=== PATIENT | male | born 1940 | race Caucasian/White ===

== ENCOUNTER 2017-08-31 20:35 | Observation (INO) ==
[2017-08-31] MEDS ORDERED: Aspirin 325 MG Tablet PO ONE (21:58)
--- NOTE | 2017-08-31 21:58 | ED ---
HPI General Chief Complaint: Back Pain/Injury Stated Complaint: left arm pain/low blood pressure Time Seen by Provider: 08/31/17 21:34 Source: patient Mode of arrival: ambulatory Limitations: no limitations History of Present Illness HPI Narrative: 76-year-old male with PMH of HTN, HLD presents to the ED for evaluation of episodic left-sided subscapular back pain. Patient states the first episode was a few days ago. Onset while at rest. Lasting a few seconds and resolving spontaneously. Sharp in nature. He states that this afternoon around 530 he had an episode with associated tingling of the left arm and diaphoresis. This lasted a few minutes and resolved on its own. He took a Tylenol at that time. On presentation he is asymptomatic. He denies headache, dizziness, chest pain, palpitations, abdominal pain, nausea, vomiting, dysuria, weakness of the extremities. He denies any acute injury or recent overuse. 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 He endorses history of [place] in his brother in his early 70s. He has never had a cardiac evaluation. Related Data Home Medications Medication Instructions Recorded Confirmed amlodipine 10 mg PO DAILY 08/31/17 08/31/17 atorvastatin 80 mg PO DAILY 08/31/17 08/31/17 benazepril 20 mg PO DAILY 08/31/17 08/31/17 Allergies Allergy/AdvReac Type Severity Reaction Status Date / Time No Known Allergies Allergy Unverified 08/31/17 20:43 Review of Systems Except as stated in HPI: all other systems reviewed are negative PMFSH Medical History Medical History Hypercholesteremia (Acute) Surgical History Surgical History History of tonsillectomy (Acute) Social History Social History Smoking Status: Never smoker How Often Do You Have a Drink Containing Alcohol: Monthly or less Recent Travel [facility] within the Last 8 Weeks: No Recent Out of Country Travel within the Last 8 Weeks: No Exam Narrative Exam Narrative: GENERAL: Well-developed, well-nourished, pleasant white male in no acute distress. SKIN: Focused skin assessment warm/dry. HEAD: Atraumatic. Normocephalic. EYES: Pupils equal and round. No scleral icterus. No injection or drainage. ENT: No nasal bleeding or discharge. Mucous membranes pink and moist. NECK: Trachea midline. No JVD. CARDIOVASCULAR: Regular rate and rhythm. No murmur appreciated. No tenderness to palpation of the precordium. RESPIRATORY: No accessory muscle use. Clear to auscultation. Breath sounds equal bilaterally. GASTROINTESTINAL: Abdomen soft, non-tender, nondistended. Hepatic and splenic margins not palpable. MUSCULOSKELETAL: No obvious deformities. No clubbing. No cyanosis. No edema. NEUROLOGICAL: Awake and alert. No obvious cranial nerve deficits. Motor grossly within normal limits. Normal speech. BACK: No reproducible tenderness. No CVA tenderness. PSYCHIATRIC: Appropriate mood and affect; insight and judgment normal. Course Initial Documented Vital Signs Temperature 98 F 08/31/17 20:38 Pulse Rate 58 L 08/31/17 20:38 Respiratory Rate 20 08/31/17 20:38 Blood Pressure 171/82 H 08/31/17 20:38 Pulse Oximetry 99 08/31/17 20:38 Last Documented Vital Signs Temperature 98 F 08/31/17 20:38 Pulse Rate 58 L 08/31/17 22:26 Respiratory Rate 16 08/31/17 22:26 Blood Pressure 145/68 H 08/31/17 22:26 Pulse Oximetry 97 08/31/17 22:26 Sign Out Sign Out Data: Patient Sign Out occurred on 08/31/17 at 23:10. Patient's care was discussed, and care was transferred from DORIS Valerio to Eneida Cote DO. Sign Out Comment: 76-year-old male presents the ED for evaluation of intermittent back pain, last episode with associated tingling of the left arm and diaphoresis. Asymptomatic on presentation. EKG without acute changes. CXR with possible atelectasis in the left lower lobe area. Remaining lab work pending. Patient signed out to Dr. Tirado at end of shift. Last updated by Allyn Islas PA at 08/31/17 23:00 Medical Decision Making KOURTNEY Attestation KOURTNEY supervised visit: Yes Attestation: I was present with the advanced practitioner during the management of this patient. I discussed the case with the advanced practitioner and agree with the findings and plan as documented in their note except as noted below. 76yM presenting with left shoulder/ arm pain and diaphoresis. The patient states that he was at rest when he began to have "sharp" upper shoulder pain which radiates down his left arm, constant x several minutes, associated with copious diaphoresis and lightheadedness. Denies palpitations, dyspnea, or nausea. He has had several episodes of similar pain in the past but has not sought medical attention. Past history significant for HTN and HLD, family history of brother with "massive heart attack" in his 70s. Well-appearing, no acute distress NCAT, PERRL RRR, no murmurs Lungs CTAB Abdomen soft and non-tender No lower extremity edema No tenderness to upper back or scapula, normal ROM GCS 15, no neuro deficits A/P: 76yM presenting with left shoulder/ arm pain and diaphoresis EKG and monitor Labs CXR Patient has multiple risk factors for CAD (family history, HTN, HLD) with story concerning for anginal equivalent. He will need cardiac monitoring and serial enzyme measurements in chest pain unit. I explained this to the patient and his family member, who understand and agree. [facility] Narrative Medical decision making narrative: 76-year-old male with PMH of HLD, HTN since the ED for evaluation of intermittent subscapular left-sided back pain. Had an episode around 530 this afternoon with accompanying left arm tingling and diaphoresis. Vitals reviewed. No reproducible tenderness on physical exam. No appreciable M/R/G. Regular rate and rhythm. IV was established. Patient was administered 325 mg aspirin. EKG: Rate 58, sinus bradycardia with first-degree AV block. NV interval 231, QRS 96, QTc [address] changes. Reviewed by Dr. Tirado. CXR: Left lower lung airspace disease which may reflect atelectasis per radiology review. CBC, CMP, cardiac enzymes pending. Patient signed out to Dr. Tirado at end of shift. Differential Diagnosis Differential Diagnosis: Musculoskeletal pain versus angina versus ACS versus pancreatitis versus other Lab Data Result diagrams: 08/31/17 22:20 08/31/17 22:20 Lab Results 08/31/17 08/31/17 08/31/17 Range/Units 22:20 22:20 22:20 WBC 7.9 (4.0-11.0) th/mm3 RBC 4.11 L (4.50-5.90) mil/mm3 Hgb 12.5 L (13.0-17.0) gm/dL Hct 36.8 L (39.0-51.0) % MCV 89.7 (80.0-100.0) fL MCH 30.5 (27.0-34.0) pg MCHC 34.1 (32.0-36.0) % RDW 13.3 (11.6-17.2) % Plt Count 210 (150-450) th/mm3 MPV 8.4 (7.0-11.0) fL Neut % (Auto) 64.7 (16.0-70.0) % Lymph % (Auto) 17.6 (9.0-44.0) % [place] % (Auto) 7.8 (0.0-8.0) % Eos % (Auto) 9.1 H (0.0-4.0) % Baso % (Auto) 0.8 (0.0-2.0) % Neut # (Auto) 5.1 (1.8-7.7) th/mm3 Lymph # (Auto) 1.4 (1.0-4.8) th/mm3 [place] # (Auto) 0.6 (0.0-0.9) th/mm3 Eos # (Auto) 0.7 H (0.0-0.4) th/mm3 Baso # (Auto) 0.1 (0.0-0.2) th/mm3 WBC Differential . Differential Comment Auto diff final PT 9.8 (9.8-11.6) sec INR 1.0 Ratio APTT 24.2 L (24.3-30.1) sec Sodium 139 (136-145) meq/L Potassium 4.1 (3.5-5.1) meq/L Chloride 108 H (98-107) meq/L Carbon Dioxide 23.2 (21.0-32.0) meq/L Anion Gap 8 (5-15) meq/L BUN 23 H (7-18) mg/dL Creatinine 1.07 (0.60-1.30) mg/dL Estimated GFR 67 L (>89) mL/min Random Glucose 117 H (74-106) mg/dL Calcium 8.4 L (8.5-10.1) mg/dL Total Bilirubin 0.2 (0.2-1.0) mg/dL AST 18 (15-37) U/L ALT 26 (12-78) U/L Alkaline Phosphatase 75 (45-117) U/L Troponin I Less than 0.02 L (0.02-0.05) ng/mL Total Protein 6.7 (6.4-8.2) g/dL Albumin 3.6 (3.4-5.0) g/dL Lipase 249 (73-393) U/L Imaging Data Radiologist's impression: Chest X-Ray 08/31/17 21:58 CONCLUSION: 1. Mild left lower lung zone airspace disease which may reflect atelectasis. Discharge Plan Discharge Disposition Patient Disposition: 30 Still Patient Discharge Condition Condition: Stable Discharge Details Diagnosis: Chest pain, Arm pain, left Physicians Team ED Provider: Eneida Cote Primary Care Provider: Toro Hidalgo Rxs /Orders / Referrals /Forms Prescriptions: No Action atorvastatin 80 mg Tablet 80 mg PO DAILY RF: 0 amlodipine 10 mg Tablet 10 mg PO DAILY RF: 0 benazepril 20 mg Tablet 20 mg PO DAILY RF: 0 Status ED Status: With Doctor
[2017-08-31 22:44] LABS: Baso # (Auto) 0.1 th/mm3 (0.0-0.2); Baso % (Auto) 0.8 % (0.0-2.0); Eos # (Auto) 0.7 th/mm3 (0.0-0.4); Eos % (Auto) 9.1 % (0.0-4.0); Hematocrit 36.8 % (39.0-51.0); Hemoglobin 12.5 gm/dL (13.0-17.0); Lymph # (Auto) 1.4 th/mm3 (1.0-4.8); Lymph % (Auto) 17.6 % (9.0-44.0); Mean Corpuscular HGB Conc 34.1 % (32.0-36.0); Mean Corpuscular Hemoglobin 30.5 pg (27.0-34.0); Mean Corpuscular Volume 89.7 fL (80.0-100.0); Mean Platelet Volume 8.4 fL (7.0-11.0); Mono # (Auto) 0.6 th/mm3 (0.0-0.9); Mono % (Auto) 7.8 % (0.0-8.0); Neut # (Auto) 5.1 th/mm3 (1.8-7.7); Neut % (Auto) 64.7 % (16.0-70.0); Platelet Count 210 th/mm3 (150-450); Red Blood Count 4.11 mil/mm3 (4.50-5.90); Red Cell Distribution Width 13.3 % (11.6-17.2); White Blood Count 7.9 th/mm3 (4.0-11.0)
--- NOTE | 2017-08-31 22:49 | XR ---
EXAM DATE: 08/31/2017 10:45 PM EDT AGE/SEX: 76 years / Male INDICATIONS: Chest pain. CLINICAL DATA: This is the patient's initial encounter. Patient reports that signs and symptoms have been present for 1 day and indicates a pain score of 8/10. MEDICAL/SURGICAL HISTORY: None. None. COMPARISON: No prior exams available for comparison. FINDINGS: Mild airspace disease in the left lower lung zone. The cardiomediastinal contours are unremarkable. Osseous structures are intact. CONCLUSION: 1. Mild left lower lung zone airspace disease which may reflect atelectasis. Electronically signed by: Tr Mkai MD 08/31/2017 10:48 PM EDT
[2017-08-31 22:56] LABS: Activated Partial Thrombo Time 24.2 sec (24.3-30.1); Prothrombin Time 9.8 sec (9.8-11.6)
[2017-08-31 23:01] LABS: Albumin 3.6 g/dL (3.4-5.0); Anion Gap 8 meq/L (5-15); Aspartate Aminotransferase 18 U/L (15-37); Blood Urea Nitrogen 23 mg/dL (7-18); Calcium 8.4 mg/dL (8.5-10.1); Carbon Dioxide 23.2 meq/L (21.0-32.0); Chloride 108 meq/L (98-107); Glomerular Filtration Rate 67 mL/min (>89); Glucose,Random 117 mg/dL (74-106); Lipase 249 U/L (73-393); Potassium 4.1 meq/L (3.5-5.1); Sodium 139 meq/L (136-145)
[2017-08-31 23:02] LABS: Alanine Aminotransferase 26 U/L (12-78)
[2017-08-31 23:06] LABS: Alkaline Phosphatase 75 U/L (45-117); Total Protein 6.7 g/dL (6.4-8.2)
[2017-09-01] MEDS ORDERED: Acetaminophen 500 MG Tablet PO PRN (07:28)
--- NOTE | 2017-09-01 08:43 | P.HPCA ---
History of Present Illness Primary Care Physician: Toro Hidalgo MD Chief Complaint: chest pain History of Present Illness: 76 year old male with history of hyperlipidemia and hypertension presents emergency room for further evaluation left scapular and left arm pain. Onset of left scapula pain 3 days ago. Characterizes aching. Duration minutes. Made worse certain positions. No precipitating, relieving factors, associated symptoms. Yesterday afternoon while watching TV developed left elbow tightness and sharp pain. Duration 5-10 seconds. No associated symptoms of nausea, vomiting, dyspnea, or diaphoresis. discomfort returned x1 episode, again duration seconds. After second episode became diaphoretic after pain subsided. Left elbow pain did not occur with left scapular pain. No recent illness or injury. Denies similar pain in the past. No past cardiac testing. Family history noncontributory for early onset cardiovascular disease. No history of tobacco use. - Diagnosis (1) Chest pain, atypical (2) H/O: hypertension (3) H/O hyperlipidemia Review of Systems All other systems reviewed negative except as stated in [facility] - History History Provided By: Patient - Medical History Medical History: Medical History (Last Updated 09/01/17 @ 11:42 by NAILA Lagunas) Arthritis Cataract, left eye GERD (gastroesophageal reflux disease) Hypercholesteremia Hypertension - Surgical History Surgical History: Surgical History (Last Updated 09/01/17 @ 11:42 by NAILA Lagunas) H/O cataract removal with insertion of prosthetic lens History of tonsillectomy - Family History Family History: Family History (Last Updated 09/01/17 @ 11:43 by NAILA Lagunas) Brother Coronary artery disease - Tobacco History Second Hand Smoke Exposure: No Tobacco Use In Past 30 Days: No Smoking Status: Never smoker - Alcohol History How Often Do You Have a Drink Containing Alcohol: Monthly or less - Substance Use History Substance History: No History of Abuse - Travel History History of Recent Travel: No Recent Travel in the [place] Within the Last 8 Weeks: No Recent Travel Out of the Country Within the Last 8 Weeks: No - Immunization History Tetanus Immunization: <5 Years Tetanus Immunization Year if Known: 2016 Medications and Allergies Active Medications: Active Medications Acetaminophen (Tylenol) 500 mg PO Q4H PRN PRN Reason: HEADACHE Aspirin (Aspirin) 325 mg PO DAILY ROXANA Last Admin: 09/01/17 08:22 Dose: 325 mg Nitroglycerin (Nitrostat Sl) 0.4 mg SL Q5M PRN PRN Reason: CHEST PAIN Sodium Chloride (Ns Flush) 2 ml IV.FLUSH BID ROXANA Last Admin: 09/01/17 08:21 Dose: 2 ml Sodium Chloride (Ns Flush) 2 ml IV.FLUSH PRN PRN PRN Reason: FLUSH AFTER USING IV ACCESS Allergies Allergy/AdvReac Type Severity Reaction Status Date / Time No Known Allergies Allergy Unverified 08/31/17 20:43 Home Medications Medication Instructions Recorded Confirmed Type amlodipine 10 mg PO DAILY 08/31/17 08/31/17 History atorvastatin 80 mg PO DAILY 08/31/17 08/31/17 History benazepril 20 mg PO DAILY 08/31/17 08/31/17 History Exam Vital signs: Vital Signs 08/31/17 20:38 08/31/17 22:12 08/31/17 22:26 Temperature 98 F Pulse Rate 58 L 58 L Respiratory Rate 20 16 Blood Pressure 171/82 H 145/68 H Pulse Oximetry 99 97 97 09/01/17 00:00 09/01/17 00:51 09/01/17 04:00 Temperature 97.9 F 98.3 F Pulse Rate 50 L 52 L 52 L Respiratory Rate 16 16 17 Blood Pressure 102/57 L 113/58 L 116/62 Pulse Oximetry 95 98 96 09/01/17 08:00 Temperature 97.9 F Pulse Rate 63 Respiratory Rate 16 Blood Pressure 141/67 H Pulse Oximetry 96 Intake & Output 08/31/17 09/01/17 09/01/17 18:59 06:59 18:59 Weight 92.533 kg - Constitutional no acute distress, average body habitus, cooperative - Routine HEENT Exam Head: Present: normocephalic, atraumatic - Routine Neck Exam Present: supple, full ROM. Absent: JVD, carotid bruit - Routine Chest/Breast/Axilla Exam Chest wall: Absent: tenderness - Routine Respiratory Exam Present: CTA bilaterally. Absent: rhonchi, wheezes, crackles - Routine Cardiovascular Exam Present: RRR, murmur, bradycardia. Absent: gallop, rubs Comments: 2/6 systolic murmur heard best right sternal border - Routine Abdominal Exam Present: soft, normoactive bowel sounds. Absent: tenderness, distended, guarding, firm - Routine Extremities Exam Present: full ROM, pulses intact, normal capillary refill. Absent: edema - Routine Skin Exam Present: intact, warm, normal turgor - Routine Neurological Exam Present: alert, oriented X3, CN II-XII intact, moving all extremities, normal tone - Routine Psychiatric Exam Present: normal affect, normal thought process, cooperative, good insight, good judgment. Absent: anxious, agitated Results 08/31/17 22:20 08/31/17 22:20 Cardiac Enzymes 08/31/17 09/01/17 09/01/17 Range/Units 22:20 02:50 05:48 AST 18 (15-37) U/L Troponin I Less than 0.02 L Less than 0.02 L Less than 0.02 L (0.02-0.05) ng/mL Coagulation 08/31/17 Range/Units 22:20 PT 9.8 (9.8-11.6) sec APTT 24.2 L (24.3-30.1) sec CBC 08/31/17 Range/Units 22:20 WBC 7.9 (4.0-11.0) th/mm3 RBC 4.11 L (4.50-5.90) mil/mm3 Hgb 12.5 L (13.0-17.0) gm/dL Hct 36.8 L (39.0-51.0) % Plt Count 210 (150-450) th/mm3 Neut # (Auto) 5.1 (1.8-7.7) th/mm3 Lymph # (Auto) 1.4 (1.0-4.8) th/mm3 [place] # (Auto) 0.6 (0.0-0.9) th/mm3 Eos # (Auto) 0.7 H (0.0-0.4) th/mm3 Baso # (Auto) 0.1 (0.0-0.2) th/mm3 Comprehensive Metabolic Panel 08/31/17 Range/Units 22:20 Sodium 139 (136-145) meq/L Potassium 4.1 (3.5-5.1) meq/L Chloride 108 H (98-107) meq/L Carbon Dioxide 23.2 (21.0-32.0) meq/L BUN 23 H (7-18) mg/dL Creatinine 1.07 (0.60-1.30) mg/dL Calcium 8.4 L (8.5-10.1) mg/dL AST 18 (15-37) U/L ALT 26 (12-78) U/L Alkaline Phosphatase 75 (45-117) U/L Total Protein 6.7 (6.4-8.2) g/dL Albumin 3.6 (3.4-5.0) g/dL Intake and Output 08/31/17 09/01/17 09/01/17 22:59 06:59 14:59 Other: Weight 92.533 kg EKG interpretations - EKG EKG results cardiology: sinus rhythm, normal axis, normal QRS, normal ST/T (1st AVB, NSB, no st t segment changes, normal axis) EKG shows: bradycardia - Blocks, axis, hypertrophy, ST abn AV and intraventricular conduction: 1 AV block Caprini VTE Risk Assessment Caprini VTE Risk Assessment: Moderate/High Risk (score >= 2) Caprini Risk Assessment Model: Point Value = 1 Point Value = 2 Point Value = 3 Point Value = 5 Age 41-60 Minor surgery BMI > 25 kg/m2 Swollen legs Varicose veins or History of unexplained or recurrent spontaneous Oral contraceptives or hormone replacement Sepsis (< 1 month) Serious lung disease, including pneumonia (< 1 month) Abnormal pulmonary function Acute myocardial infarction Congestive heart failure (< 1 month) History of inflammatory bowel disease Medical patient at bed rest Age 61-74 Arthroscopic surgery Major open surgery (> 45 min) Laparoscopic surgery (> 45 min) Malignancy Confined to bed (> 72 hours) Immobilizing plaster cast Central venous access Age >= 75 History of VTE Family history of VTE Factor V Leiden Prothrombin [id number] Lupus anticoagulant Anticardiolipin antibodies Elevated serum homocysteine Heparin-induced thrombocytopenia Other congenital or acquired thrombophilia Stroke (< 1 month) Elective arthroplasty Hip, pelvis, or leg fracture Acute spinal cord injury (< 1 month) Prophylaxis Regimen: Total Risk Factor Score Risk Level Prophylaxis Regimen 0-1 Low Early ambulation 2 Moderate Order ONE of the following: *Sequential Compression Device (SCD) *Heparin 5000 units SQ BID 3-4 Higher Order ONE of the following medications: *Heparin 5000 units SQ TID *Enoxaparin/Lovenox 40 mg SQ daily (WT < 150 kg, CrCl > 30 mL/min) *Enoxaparin/Lovenox 30 mg SQ daily (WT < 150 kg, CrCl > 10-29 mL/min) *Enoxaparin/Lovenox 30 mg SQ BID (WT < 150 kg, CrCl > 30 mL/min) AND/OR *Sequential Compression Device (SCD) 5 or more Highest Order ONE of the following medications: *Heparin 5000 units SQ TID (Preferred with Epidurals) *Enoxaparin/Lovenox 40 mg SQ daily (WT < 150 kg, CrCl > 30 mL/min) *Enoxaparin/Lovenox 30 mg SQ daily (WT < 150 kg, CrCl > 10-29 mL/min) *Enoxaparin/Lovenox 30 mg SQ BID (WT < 150 kg, CrCl > 30 mL/min) AND *Sequential Compression Device (SCD) Assessment and Plan - Assessment (1) Chest pain, atypical Code(s): R07.89 - Other chest pain Status: Acute Plan: Admitted to chest pain center. ACS ruled out 3 sets of EKGs and cardiac enzymes. Monitor on telemetry overnight. Seen and evaluated by Dr. Cortes Paulson. Proceed with myocardial perfusion testing this morning. If unremarkable, plans to be discharged home with follow-up with PCP. Reassurance provided discomfort atypical cardiac pain, however due to risks factors cardiac testing not unreasonable. Verbalizes understanding and agreeable to plan of care. (2) H/O: hypertension Code(s): Z86.79 - Personal history of other diseases of the circulatory system Status: Chronic Plan: Continue amlodipine and benazepril. (3) H/O hyperlipidemia Code(s): Z86.39 - Personal history of other endocrine, nutritional and metabolic disease Status: Chronic Plan: Continue atorvastatin. H&P: Quality - VTE Deep Vein Thrombosis/Pulmonary Embolism Present on Admission: No
[2017-09-01] MEDS ORDERED: Aspirin 325 MG Tablet PO SCH (09:00)
[2017-09-01] MEDS ORDERED: amLODIPine 10 MG Tablet PO SCH (10:45)
[2017-09-01] MEDS ORDERED: Lisinopril 20 MG Tablet PO SCH (12:00)
[2017-09-01] MEDS ORDERED: Regadenoson Inj 0.4 MG/5 ML Syringe IV.PUSH ONE (12:58)
--- NOTE | 2017-09-01 14:54 | NM ---
EXAM DATE: 09/01/2017 2:15 PM EDT AGE/SEX: 76 years / Male INDICATIONS:Angina. . Chest pain. CLINICAL DATA: This is the patient's initial encounter. Patient reports that signs and symptoms have been present for 1 day and indicates a pain score of 0/10. MEDICAL/SURGICAL HISTORY: Hypertension. Hypercholesterolemia. Tonsillectomy. COMPARISON: No prior exams available for comparison. DOSE: 8.5 mCi Tc 99m Myoview at rest 27.2 mCi [id number] at stress 0.4 mg Lexiscan STRESS SYMPTOMS: Weird feeling. EJECTION FRACTION: > 70 % TECHNIQUE: The patient underwent pharmacologic stress with infusion of prescribed dose. Continuous ECG tracing was monitored during stress. Gated SPECT imaging was performed after stress and conventi onal SPECT imaging was performed at rest. The examination was performed on a SPECT/CT scanner, both attenuation and non-corrected datasets were reviewed. FINDINGS: Distribution: The maximum perfused segment at stress is in the anterolateral wall. Perfusion Study: The pattern of perfusion at stress is within normal limits except for a fixed defe ct posterior basal wall probably diaphragmatic attenuation artifact. Gated Study: There are intact wall motion and wall thickening without hypokinetic or dyskinetic segm ents. The ejection fraction is calculated at > 70%. RISK CATEGORY: Low (<1% Annual Motality Rate) CONCLUSION: 1. No significant ischemia. Electronically signed by: Margot Sheehan MD 09/01/2017 2:52 PM EDT
--- NOTE | 2017-09-02 11:27 | TR ---
Date Performed: 09/01/2017 Time Performed: 12:55:51 DOCTOR: Cortes Paulson DRUG LIST: CLINICAL HISTORY: REASON FOR TEST: REASON FOR ENDING: OBSERVATION: CONCLUSION: COMMENTS: Lexiscan stress test was performed under standard four minute protocol. Radionuclide was injected one minute prior to ending the test. No electrocardiographic abormalities were present t o suggest ischemia. Nuclear imaging and interpretation are pending.
--- NOTE | 2017-09-02 11:44 | ECG ---
Date Performed: 09/01/2017 Time Performed: 05:52:17 PTAGE: 76 years EKG: SINUS BRADYCARDIA WITH FIRST DEGREE AV BLOCK I PREVIOUS TRACING : 09/01/2017 00.11 Since previous tracing, no significant change noted DOCTOR: Cortes Paulson Interpretating Date/Time 09/02/2017 11:42:14
--- NOTE | 2017-09-02 11:44 | ECG ---
Date Performed: 09/01/2017 Time Performed: 00:11:41 PTAGE: 76 years EKG: SINUS BRADYCARDIA WITH FIRST DEGREE AV BLOCK ABNORMAL ECG PREVIOUS TRACING : 08/31/2017 20.48 Since previous tracing, no significant change noted DOCTOR: Cortes Paulson Interpretating Date/Time 09/02/2017 11:43:38
--- NOTE | 2017-09-02 11:45 | ECG ---
Date Performed: 08/31/2017 Time Performed: 20:48:24 PTAGE: 76 years EKG: SINUS BRADYCARDIA WITH FIRST DEGREE AV BLOCK ABNORMAL ECG INTERPRETATION BASED ON A DEFAULT AGE OF 40 YEARS PREVIOUS TRACING : 09/07/2008 11.34 Since previous tracing, no significant change noted DOCTOR: Cortes Paulson Interpretating Date/Time 09/02/2017 11:43:53
== END 2017-09-01 16:26 | disposition home or self-care (01) ==
LOC: NEDA 20:35 → NEPFCDU 20:35 → NEPE 20:35 → NEPFCDU 09-01 00:58
DX: E78.5 Hyperlipidemia, unspecified; E78.00 Pure hypercholesterolemia, unspecified; K21.9 Gastro-esophageal reflux disease without esophagitis; Z82.49 Family history of ischemic heart disease and other diseases of the circulatory system; I10 Essential (primary) hypertension; R94.31 Abnormal electrocardiogram [ECG] [EKG]; R07.89 Other chest pain; R01.1 Cardiac murmur, unspecified